=== PATIENT | male | born 1985 | race Caucasian/White ===

== ENCOUNTER 2017-09-08 09:43 | Emergency (ER) | payer SELFPAY ==
[~2017-09-08] VITALS: Ht 190.5 cm; Wt 88.5 kg
[2017-09-08] MEDS ORDERED: TETANUS,DIPTH,PERTUSS P/F (BOOSTRIX) 0.5 ML VIAL IM ONE (10:00)
--- NOTE | 2017-09-08 10:53 | ED General ---
General Chief Complaint: Laceration Stated Complaint: LT ARM WOUND Source of Information: Patient Exam Limitations: No Limitations History of Present Illness Date Seen by Provider: Sep 08, 2017 Time Seen by Provider: 09:50 Initial Comments This 32-year-old gentleman presents to the emergency room with laceration on the left forearm. He was clearing brush when he scraped his arm against the top of a T post. He has no other injuries. He is in need of a tetanus booster. Wound is no longer bleeding. Allergies and Home Medications Allergies Coded Allergies: No Known Drug Allergies (Unverified , 09/08/17) Home Medications No Active Prescriptions or Reported Meds Patient Home Medication List Home Medication List Reviewed: Yes Review of Systems Constitutional: no symptoms reported EENTM: no symptoms reported Respiratory: no symptoms reported Cardiovascular: no symptoms reported Musculoskeletal: no symptoms reported Skin: see HPI Psychiatric/Neurological: No Symptoms Reported Hematologic/Lymphatic: No Symptoms Reported Past Xdsglch-Gvwaas-Fyhpoq Hx Patient Social History Recent Foreign Travel: No Contact w/Someone Who Travel: No Past Medical History Surgeries: No Respiratory: No Cardiac: No Neurological: No Gastrointestinal: No Musculoskeletal: No Endocrine: No HEENT: No Physical Exam Vital Signs Vital Signs - First Documented 09/08/17 09/08/17 09:43 10:57 Temp 98.1 Pulse 70 Resp 18 B/P (MAP) 128/70 (89) Pulse Ox 96 O2 Delivery Room Air Capillary Refill : Less Than 3 Seconds General Appearance: No Apparent Distress, WD/WN HEENT: Normal ENT Inspection Neck: Normal Inspection Respiratory: Normal Breath Sounds, No Respiratory Distress Extremity: Other (5 cm laceration on the dorsum of the left forearm extending into the subcutaneous tissue but not through the fascia. 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 Wound Length (cm): 5 Wound's Depth, Shape: linear, sub Q Wound Explored: clean Irrigated w/ Saline (ccs): 500 Betadine Prep?: Yes Anesthesia: 1% Lidocaine Volume Anesthetic (ccs): 4 Suture: Prolene Suture Size: 4-0 Number of Sutures: 8 Sterile Dressing Applied?: Yes Progress/Results/Core Measures Suspected Sepsis SIRS Temperature: Pulse: Respiratory Rate: Blood Pressure / Mean: Results/Orders My Orders Orders - ROXANNE PETERS MD Dipht,Pertuss(Acell),Tet Adult (Boostrix (09/08/17 10:00) Medications Given in ED Current Medications Medications Dose Ordered Sig/Sreekanth Route Start Time Stop Time Status Last Admin Dose Admin Diphtheria/ Tetanus/Acell Pertussis 0.5 ml ONCE ONCE IM 09/08/17 10:00 09/08/17 10:01 DC 09/08/17 10:40 0.5 ML Vital Signs/I&O 09/08/17 09/08/17 09:43 10:57 Temp 98.1 98.2 Pulse 70 72 Resp 18 14 B/P (MAP) 128/70 (89) 128/70 Pulse Ox 96 96 O2 Delivery Room Air Capillary Refill : Less Than 3 Seconds Progress Note : Progress Note Skin was cleaned with alcohol and wound was locally anesthetized with lidocaine. Wound was then cleaned with chlorhexidine and sterile saline. It was then irrigated with 500 mL of sterile normal saline. Wound was approximated with 8 suture of 4-0 Prolene. Patient tolerated the procedure well. A tetanus booster was administered. Departure Impression Primary Impression: Laceration of left forearm Qualified Codes: S51.812A - Laceration without foreign body of left forearm, initial encounter Disposition: 01 HOME, SELF-CARE Condition: Improved Departure-Patient Inst. Decision time for Depature: 10:00 Referrals: NO,LOCAL PHYSICIAN (PCP) Primary Care Physician Patient Instructions: Laceration Repair With Stitches (DC) Add. Discharge Instructions: Keep the wound clean and dry except for normal showering. Do not submerge until sutures have been removed. Keep wound covered while you are working or in dirty environments. Monitor for signs of infection such as increasing redness, swelling, puslike drainage, increasing pain, or fever. Return to care promptly if you notice these symptoms. You may take Tylenol (acetaminophen) and /or ibuprofen for pain. Have your sutures removed in about 10 days. Return to the ER to have the sutures removed. All discharge instructions reviewed with patient and/or family. Voiced understanding. Scripts No Active Prescriptions or Reported Meds ROXANNE PETERS MD Sep 08, 2017 10:53
[2017-09-08 10:57] VITALS: BP 128/70
== END 2017-09-08 10:57 | disposition home or self-care (01) ==
LOC: ER 09:46
DX: S51.812A Laceration without foreign body of left forearm, initial encounter (principal); Z23 Encounter for immunization; W26.9XXA Contact with unspecified sharp object(s), initial encounter
CPT/HCPCS: 12032; 90471; 90715

== ENCOUNTER 2017-09-18 14:43 | Emergency (ER) | payer SELFPAY ==
[~2017-09-18] VITALS: Ht 180.3 cm; Wt 90.7 kg
[2017-09-18 14:50] VITALS: BP 137/72
== END 2017-09-18 15:06 | disposition home or self-care (01) ==
LOC: EDUNIT# 14:43 → ER 14:45
DX: S41.112D Laceration without foreign body of left upper arm, subsequent encounter (principal); X58.XXXD Exposure to other specified factors, subsequent encounter